=== PATIENT | male | born 1940 ===

== ENCOUNTER 2021-03-16 19:58 | Inpatient (IN) | payer MEDICARE, BC ==
[~2021-03-16] VITALS: Ht 152.4 cm; Wt 54.5 kg
[2021-03-16 20:00] VITALS: BP 86/41
[2021-03-16 20:46] VITALS: BP 79/40; PULSE 63; TEMP 97.7
[2021-03-16] MEDS ORDERED: ZYLOPRIM 300MG300 MG PO (20:57)
[2021-03-16] MEDS ORDERED: TYLENOL 325MG325 MG PO (20:57)
[2021-03-16] MEDS ORDERED: IPRATROPIUM BROM3 M1 IH (20:57)
[2021-03-16] MEDS ORDERED: ASPIRIN 81M81 MG/TA2 PO (20:57)
[2021-03-16] MEDS ORDERED: NAMENDA 10MG TA10 MG PO (20:58)
[2021-03-16] MEDS ORDERED: LASIX 40MG TABL40 MG PO (20:58)
[2021-03-16] MEDS ORDERED: ELIQUIS 2.5 PO (20:58)
[2021-03-16] MEDS ORDERED: IMDUR 60MG60 MG/TAB PO (20:58)
[2021-03-16] MEDS ORDERED: KAPSPARGO SPRIN50 MG PO (20:59)
[2021-03-16] MEDS ORDERED: ZOCOR 80MG80 MG PO (20:59)
[2021-03-16] MEDS ORDERED: CARAFATE S1 GM/10 ML PO (20:59)
[2021-03-16] MEDS ORDERED: PRILOTC (20:59)
[2021-03-16] MEDS ORDERED: NIFEREX-15150 MG/CAP PO (20:59)
[2021-03-16] MEDS ORDERED: FLOMAX 0.40.4 MG/CAP PO (21:00)
[2021-03-17] VITALS (15 sets, daily range): BP systolic 86–154; BP diastolic 44–93; PULSE 58–86; TEMP 97.5–98.6
[2021-03-17 01:55] LABS: COLLECTION METHOD CATHETER
[2021-03-17 02:00] LABS: MUCOUS Present /lpf; PH 5 (5-8); SQUAMOUS EPITHELIAL None Seen /hpf; URINE APPEARANCE Clear; URINE BACTERIA None Seen /hpf; URINE BILIRUBIN Negative (NEGATIVE); URINE BLOOD 1+ (NEGATIVE); URINE COLOR Yellow; URINE GLUCOSE Negative (NEGATIVE); URINE KETONE Negative (NEGATIVE); URINE LEUKOCYTE ESTERASE Negative (NEGATIVE); URINE NITRATE Negative (NEGATIVE); URINE PROTEIN(semi-quant) Negative (NEGATIVE); URINE RBC 0-2 /hpf; URINE UROBILINOGEN Negative (NEGATIVE)
[2021-03-17 07:10] LABS: INR 1.3 (0.8-3.0); PROTHROMBIN TIME 13.9 SECONDS (9.7-12.8)
[2021-03-17 07:14] LABS: BASO % 0.4 % (0.0-2.0); EOS # 0.3 K/mm3 (0.0-0.7); EOS % 3.4 % (0-4.0); GRAN # 5.5 K/mm3 (1.4-6.5); GRAN % 73.4 % (42.2-75.2); LYMPH % 12.9 % (20.0-51.0); MEAN CELL VOLUME 100 fl (80.0-100.0); MEAN CORPUSCULAR HGB CONC 33 g/dl (33.0-37.0); MEAN PLATELET VOLUME 10.7 fl (7.4-10.4); MONO # 0.7 K/mm3 (0.1-0.6); MONO % 9.5 % (1.7-9.3); PLATELET COUNT 167 K/mm3 (130-400); RED BLOOD COUNT 2.68 M/mm3 (4.20-5.60); REDCELL DISTRIBUTION WIDTH-CV 14.6 % (11.5-14.5)
[2021-03-17 07:17] LABS: HEMATOCRIT 26.9 % (42.0-52.0); HEMOGLOBIN 8.9 g/dl (13.5-18.0); MEAN CORPUSCULAR HEMOGLOBIN 33 pg (27.0-31.0)
[2021-03-17 07:19] LABS: CALCIUM 9.3 mg/dL (8.4-10.2); CREATININE, serum 1.34 mg/dL (0.72-1.25); POTASSIUM 3.5 mmol/L (3.5-4.5)
--- NOTE | 2021-03-17 07:52 | NUR ---
Juan Antonio MORALES with Dr Fajardo notified of consult.
--- NOTE | 2021-03-17 10:00 | NUR ---
Patient alert and oriented, answers questions appropriately. See assessment. RLE with pulses palpable, no numbness or tingling. Pulses palpable to BLE. RLE shortened and externally rotated. SCDs and TEDS in place. Garcia catheter in place, patent and draining clear yellow urine. Oxygen in place at 2l/nc per patients home use. No c/o at this time.
--- NOTE | 2021-03-17 12:09 | NUR ---
CARMEN Vaca states she will call cards consult.
--- NOTE | 2021-03-17 16:41 | NUR ---
The patient has a hip fracture and went down for surgery. EILEEN contacted the patient's , Lexi (ph#[phone]), to discuss discharge plan. Lexi states that she is down in the surgical waiting room. The patient lives alone in [place]. Lexi reports that they are still , but they do not live together. Lexi lives is [place]. She reports that the patient is independent with ADLs before hospitalization and has a cane and walker. The patient's PCP is Dr. Fernando in [place] and he receives his medications from the [facility] and his breathing meds from [facility] in [place]. The patient does not have a DPOA-HC in EMR, but Lexi reports that the patient does have one completed and that it designates her. Due to the hip fracture, EILEEN discussed post-acute rehab upon discharge. Lexi is in agreement to rehab. EILEEN reviewed Medicare.gov's list of SNFs in the [place] area. Lexi and her daughter chose 1) [facility] in [place] 2) [facility]. EILEEN to contact and fax a referral to both facilities. *Discharge plan: SNF*
--- NOTE | 2021-03-17 16:52 | NUR ---
Patient to surgery with surgical staff at 1600.
--- NOTE | 2021-03-17 18:18 | NUR ---
Patient returns post op right hip pinning. Assessment unchanged except dressing CDI to right hip. Numbness noted to RLE, pulses palpable. No c/o at this time.
--- NOTE | 2021-03-17 19:00 | NUR ---
RECEIVED CHANGE OF SHIFT REPORT FROM DAY SHIFT NURSE.
[2021-03-18] VITALS (7 sets, daily range): BP systolic 102–153; BP diastolic 50–75; PULSE 55–95; TEMP 97.3–98.3
--- NOTE | 2021-03-18 06:59 | NUR ---
CHANGE OF SHIFT REPORT GIVEN TO DAY SHIFT NURSE, JOSE ARMANDO MARSHALL.
[2021-03-18 07:00] LABS: GRAN # 3.8 K/mm3 (1.4-6.5); GRAN % 87.7 % (42.2-75.2); LYMPH # 0.4 K/mm3 (1.2-3.4); LYMPH % 9.3 % (20.0-51.0); MEAN CELL VOLUME 103 fl (80.0-100.0); MEAN CORPUSCULAR HGB CONC 33 g/dl (33.0-37.0); MEAN PLATELET VOLUME 10.6 fl (7.4-10.4); MONO # 0.1 K/mm3 (0.1-0.6); MONO % 2.8 % (1.7-9.3); PLATELET COUNT 159 K/mm3 (130-400); RED BLOOD COUNT 2.79 M/mm3 (4.20-5.60); REDCELL DISTRIBUTION WIDTH-CV 14.4 % (11.5-14.5)
[2021-03-18 07:01] LABS: HEMATOCRIT 28.8 % (42.0-52.0); HEMOGLOBIN 9.6 g/dl (13.5-18.0); MEAN CORPUSCULAR HEMOGLOBIN 34 pg (27.0-31.0)
[2021-03-18 07:05] LABS: CALCIUM 9.9 mg/dL (8.4-10.2); CREATININE, serum 1.1 mg/dL (0.72-1.25); POTASSIUM 4.8 mmol/L (3.5-4.5)
--- NOTE | 2021-03-18 09:17 | NUR ---
The patient's RN notified SW that the patient's would like to talk to SW again about preferences. SW contacted the patient's , Lexi, to address the above. Lexi reports that she is good with pursuing their previous preferences. SW contacted and faxed a referral to [facility] in [place] and to [facility]. Awaiting screens. [facility]: aaron Crane#[phone] fax#[phone] [facility]: suzy Beardenph#[phone], ph#[phone] fax#[phone]
--- NOTE | 2021-03-18 09:27 | NUR ---
Initial visit; Patient thanked Regulatory Law Specialist for looking in on him, offering prayer and God's blessings. Patient states he has had a wonderful stay at our hospital and that everyone has treated him wonderfully. Regulatory Law Specialist will check on him while he is here.
--- NOTE | 2021-03-18 10:00 | NUR ---
Patient alert and oriented, answers questions appropriately. See assessment. RLE with dressing CDI, no redness noted around dressing. Pulses palpable to BLE. Sensation intact to BLE, no numbness or tingling. REYNALDO hose and SCDs in place. Post op exercises reviewed with patient. No c/o at this time.
--- NOTE | 2021-03-18 16:38 | NUR ---
EILEEN attempted to contact Rosa Maria at [facility] to follow up on referral. Rosa Maria was gone for the day. EILEEN left her a voicemail. Monisha, at [facility], reports that they have clinically accepted the patient; but that they would not be able to take him until Monday. Awaiting screen from the [facility].
--- NOTE | 2021-03-18 21:24 | NUR ---
Patient assessed around 2014. Alert and oriented x 4, and able to make needs known. Denies pain and discomfort. Peripheral INT to left forearm. Denies SOB and dyspnea. Chronic cough. LS CTA in upper lobes, diminished in lower. On oxygen at 1.5 L/min via NC. HRR. Capillary refill less than 3 seconds. Non-tenting skin turgor. BSAx4. Abdomen soft and non-tender. Indwelling olmstead catheter patent, draining clear yellow urine via dependent drainage. Dressing to right hip CDI. REYNALDO/SCDs on. Voices no questions, needs, or concerns at this time. Resting in bed with call light within reach. High fall risk precautions in place.
[2021-03-19 03:30] VITALS: BP 124/64; PULSE 68; TEMP 97.8
--- NOTE | 2021-03-19 06:10 | NUR ---
Patient has denied having pain and discomfort this shift. Declined wanting ice pack to right hip. Voices no questions, needs, or concerns at this time. In bed with call light within reach.
[2021-03-19 07:42] LABS: MEAN CELL VOLUME 99 fl (80.0-100.0); MEAN CORPUSCULAR HGB CONC 34 g/dl (33.0-37.0); MEAN PLATELET VOLUME 10.9 fl (7.4-10.4); PLATELET COUNT 163 K/mm3 (130-400); RED BLOOD COUNT 2.48 M/mm3 (4.20-5.60); REDCELL DISTRIBUTION WIDTH-CV 14.2 % (11.5-14.5)
[2021-03-19 07:46] LABS: HEMATOCRIT 24.5 % (42.0-52.0); HEMOGLOBIN 8.4 g/dl (13.5-18.0); MEAN CORPUSCULAR HEMOGLOBIN 34 pg (27.0-31.0)
[2021-03-19 07:56] LABS: CALCIUM 9.7 mg/dL (8.4-10.2); CREATININE, serum 1.16 mg/dL (0.72-1.25)
[2021-03-19 08:10] VITALS: BP 138/74; PULSE 74; TEMP 98.1
--- NOTE | 2021-03-19 10:00 | NUR ---
Patient alert and oriented, answers questions appropriately. See assessment. Right hip with gauze dressing, changed. Right hip incision with edges well approximated, no redness or drainage noted. Sensation intact to RLE, pulses palpable. Post op exercises reviewed with patient. No c/o at this time.
--- NOTE | 2021-03-19 10:27 | NUR ---
[employer] sent EILEEN an email and per [facility], the patient has been approved for the wound vac. EILEEN notified Natural Resource Officer and the clinical team. The surgeon changed the patient's dressings today. EILEEN met with the patient to update and presented him with the Proof of Delivery Form. The patient verbalized understanding and signed the form. EILEEN provided the patient with a copy and faxed a copy back to [employer]. The patient reports that his daughter will be coming up here to transport him home. The patient is to discharge back home with his today, 03/19, with home health services for assisted/wound care/PT/OT from [facility]. EILEEN notified and faxed orders to Angélica at [facility]. Angélica reports that they will be going out to see the patient on Monday to start services and change his dressings. No additional needs at this time.
--- NOTE | 2021-03-19 10:58 | NUR ---
The PA notified EILEEN that they are ready to discharge the patient today. EILEEN contacted Meme and Pino at [facility] to follow up on referral. Meme reports that they have another complex admission today and will probably not be able to take until Monday. Pino reports that they will check to see if the can take the patient tomorrow. EILEEN contacted and updated the patient's , Lexi. Lexi would still like to pursue with [facility]. Lexi reports that she is going to reach out to Pino and see if there is anything she can do. EILEEN then received a phone call back from Meme at [facility]. Meme reports that they are good with going ahead and accepting the patient today. The patient's plans to provide transportation. EILEEN contacted his , Lexi, to confirm the above. Lexi reports that she will head to the hospital from [place] now to transport the patient. EILEEN read the IM form outloud to Lexi over the phone. Lexi verbalized understanding and gave SW approval to sign the form on his behalf. EILEEN updated the clinical team. The patient is to discharge today, 03/19, to [facility] in [place] for a skilled stay. Transportation is to be by private vehicle, via the patient's . No additional needs at this time.
[2021-03-19] MEDS ORDERED: VITAMIN C500 MG PO (11:18)
[2021-03-19] MEDS ORDERED: OSCAL 500 TAB500 MG PO (11:18)
[2021-03-19] MEDS ORDERED: DUO-KAPS1 CAP PO (11:19)
--- NOTE | 2021-03-19 12:00 | NUR ---
Garcia catheter removed per Drs order. Geno-care completed. Tolerated well.
[2021-03-19 12:15] VITALS: BP 114/70; PULSE 67; TEMP 98.1
[2021-03-19 12:34] VITALS: BP 114/70; PULSE 67; TEMP 98.1
--- NOTE | 2021-03-19 13:30 | NUR ---
Discharge instructions reviewed with patient and spouse, verbalized understanding. [facility] to [facility] to [facility] in [place], [place]. Patient uses oxygen at home, did not bring home oxygen with her. Calls placed to obtain oxygen prior to discharge.
--- NOTE | 2021-03-19 14:37 | NUR ---
The patient's , Lexi, arrived to the hospital. The patient has home oxygen and he does not have a portable tank here with him for transport. Lexi reports that he get his oxygen from [facility] in [place]. EILEEN contacted Aureliano at [facility]. Aureliano reports that they are partnered with [facility] in [place]. He reports that they would be able to supply a portable tank to the patient for transport. He states that he does not know what time they would be able to deliver a tank to the hospital though. EILEEN updated the patient's , Lexi. Lexi reports that she would be able to go supervisor opening and picking the portable tank from [facility]. EILEEN notified [facility]. The rep reports leola they have the tank all ready to go for the . EILEEN updated the patient's RN.
--- NOTE | 2021-03-19 15:30 | NUR ---
Patient spouse obtained oxygen from in [facility]. Discharged via wheelchair [facility] with spouse at 1500.
--- NOTE | 2021-03-19 15:42 | NUR ---
Report called to Zaira at [facility].
== END 2021-03-19 15:00 | DRG 481 ==
LOC: MEDICAL 19:58 → SURG 19:59
PROVIDERS: Orthopaedic Surgery; Physician Assistant; Student in an Organized Health Care Education/Training Program; ADMIT Internal Medicine
PROC: 0QH634Z Insertion of Internal Fixation Device into Right Upper Femur, Percutaneous Approach (ICD-10-PCS; principal; 2021-03-17 16:00)
DX: S72.011A Unspecified intracapsular fracture of right femur, initial encounter for closed fracture (principal); E44.0 Moderate protein-calorie malnutrition; Z68.1 Body mass index [BMI] 19.9 or less, adult; J44.9 Chronic obstructive pulmonary disease, unspecified; I25.10 Atherosclerotic heart disease of native coronary artery without angina pectoris; I73.9 Peripheral vascular disease, unspecified; E11.9 Type 2 diabetes mellitus without complications; F17.210 Nicotine dependence, cigarettes, uncomplicated; Z66 Do not resuscitate; S09.90XA Unspecified injury of head, initial encounter; I10 Essential (primary) hypertension; R41.81 Age-related cognitive decline; K21.9 Gastro-esophageal reflux disease without esophagitis; M10.9 Gout, unspecified; M21.051 Valgus deformity, not elsewhere classified, right hip; E78.5 Hyperlipidemia, unspecified; D64.9 Anemia, unspecified; I95.9 Hypotension, unspecified; Z20.822 Contact with and (suspected) exposure to COVID-19; W18.30XA Fall on same level, unspecified, initial encounter; Y93.89 Activity, other specified; Y92.008 Other place in unspecified non-institutional (private) residence as the place of occurrence of the external cause; Z95.1 Presence of aortocoronary bypass graft; Z79.01 Long term (current) use of anticoagulants; Z86.73 Personal history of transient ischemic attack (TIA), and cerebral infarction without residual deficits; Z99.81 Dependence on supplemental oxygen
CPT/HCPCS: 99223-AI; 99231-AI; 99232-AI; 99239; A9284; C1713; J0690; J1100; J2250; J2370; J2405; J2704; J2795; J3010; J7040